=== PATIENT | male | born 2000 | race Hispanic/Latino ===

== ENCOUNTER 2021-10-09 17:14 | Emergency (ER) | payer SELFPAY ==
[~2021-10-09] VITALS: Ht 170.2 cm; Wt 76.2 kg
[2021-10-09] MEDS ORDERED: KETOROLAC TROMETHAMINE 30 MG/ML VIAL IV STA (17:41)
[2021-10-09] MEDS ORDERED: SODIUM CHLORIDE 0.9% 1000ML 1,000 ML IV ONE (17:45)
[2021-10-09] MEDS ORDERED: ONDANSETRON HCL INJ 2MG/ML 2ML 2 MG/ML VIAL IV PRN (17:45)
[2021-10-09] MEDS ORDERED: DICYCLOMINE HCL 20 MG TAB PO ONE (18:00)
[2021-10-09 18:21] LABS: BASOPHILS # (AUTO) 0.1 (0.0-0.1); BASOPHILS % 0.9 % (0.0-1.0); EOSINOPHILS # (AUTO) 0.2 (0.0-0.4); HEMATOCRIT 40.2 % (38.2-49.6); HEMOGLOBIN 14.1 g/dL (14.0-18.0); LYMPHOCYTES # (AUTO) 2.4 (1.0-3.2); LYMPHOCYTES % 28.1 % (18.0-39.1); MEAN CORPUSCULAR HEMOGLOBIN 28.4 pg (28-32); MEAN CORPUSCULAR HGB CONC 35.1 g/dL (31-35); NEUTROPHILS # (AUTO) 4.9 (2.1-6.9); NEUTROPHILS % 56.7 % (38.7-80.0); PLATELET COUNT 356 x10e3/uL (140-360); RED BLOOD COUNT 4.96 x10e6/uL (4.3-5.7); RED CELL DISTRIBUTION WIDTH 12.3 % (11.7-14.4)
[2021-10-09 18:40] LABS: ALBUMIN 4.6 g/dL (3.5-5.0); ALBUMIN/GLOBULIN RATIO 1.4 (0.8-2.0); ANION GAP 14.1 mmol/L (8-16); CALCIUM 9.7 mg/dL (8.4-10.2); CREATININE, SERUM 0.96 mg/dL (0.72-1.25); POTASSIUM 4.1 mmol/L (3.5-5.1)
[2021-10-09] MEDS ORDERED: DICYCLOMINE HCL20 MG PO (19:00)
[2021-10-09] MEDS ORDERED: ONDANSETRON ODT4 MG PO (19:00)
[2021-10-09 19:07] LABS: AMPHETAMINES SCREEN,URINE NEGATIVE (NEGATIVE); BENZODIAZEPINES SCREEN,URINE NEGATIVE (NEGATIVE); PHENCYCLIDINE SCREEN,URINE NEGATIVE (NEGATIVE)
[2021-10-09 19:24] VITALS: BP 128/78
== END 2021-10-09 19:20 | disposition home or self-care (01) ==
LOC: EDBD 17:14 → ER 17:17
DX: R10.13 Epigastric pain (principal); K52.9 Noninfective gastroenteritis and colitis, unspecified; R11.2 Nausea with vomiting, unspecified
CPT/HCPCS: 36415; 74018; 80053; 80307; 83690; 85025; 99284; J1885; J2405; J7030

== ENCOUNTER 2021-10-09 23:51 | Emergency (ER) | payer SELFPAY ==
[~2021-10-09] VITALS: Ht 170.2 cm; Wt 76.2 kg
[~2021-10-09 23:51] MED LIST: DICYCLOMINE HCL20 MG PO; ONDANSETRON ODT4 MG PO
[2021-10-09] MEDS ORDERED: ONDANSETRON HCL INJ 2MG/ML 2ML 2 MG/ML VIAL IV STA (23:53)
[2021-10-10] MEDS ORDERED: DICYCLOMINE HCL 20 MG/2 ML VIAL IM ONE
[2021-10-10] MEDS ORDERED: SODIUM CHLORIDE 0.9% 1000ML 1,000 ML IV SCH
[2021-10-10 00:11] LABS: BASOPHILS # (AUTO) 0.1 (0.0-0.1); BASOPHILS % 0.7 % (0.0-1.0); EOSINOPHILS # (AUTO) 0.3 (0.0-0.4); EOSINOPHILS % 1.9 % (0.0-6.0); HEMATOCRIT 41.4 % (38.2-49.6); HEMOGLOBIN 14.4 g/dL (14.0-18.0); LYMPHOCYTES # (AUTO) 2.7 (1.0-3.2); LYMPHOCYTES % 19.7 % (18.0-39.1); MEAN CORPUSCULAR HEMOGLOBIN 28.6 pg (28-32); MEAN CORPUSCULAR HGB CONC 34.8 g/dL (31-35); MEAN CORPUSCULAR VOLUME 82.1 fL (81-99); MONOCYTES # (AUTO) 1.3 (0.2-0.8); MONOCYTES % 9.4 % (4.4-11.3); NEUTROPHILS # (AUTO) 9.2 (2.1-6.9); PLATELET COUNT 336 x10e3/uL (140-360); RED BLOOD COUNT 5.04 x10e6/uL (4.3-5.7); RED CELL DISTRIBUTION WIDTH 12.5 % (11.7-14.4)
[2021-10-10 00:27] LABS: AMYLASE 43 U/L (25-125); LIPASE 10 U/L (8-78)
[2021-10-10 00:29] LABS: ALBUMIN 4.6 g/dL (3.5-5.0); ALBUMIN/GLOBULIN RATIO 1.5 (0.8-2.0); ANION GAP 12.5 mmol/L (8-16); CALCIUM 9.4 mg/dL (8.4-10.2); CREATININE, SERUM 0.94 mg/dL (0.72-1.25); POTASSIUM 4.5 mmol/L (3.5-5.1)
[2021-10-10] MEDS ORDERED: SODIUM CHLORIDE 0.9% 50ML 50 ML ONE (00:49)
[2021-10-10] MEDS ORDERED: IOPAMIDOL 370 MG/ML 200 ML INFUS..BTL INJ ONE (00:49)
[2021-10-10 02:09] VITALS: BP 110/50
== END 2021-10-10 02:13 | disposition home or self-care (01) ==
LOC: ER 23:55
DX: R10.9 Unspecified abdominal pain (principal); K52.9 Noninfective gastroenteritis and colitis, unspecified; R11.2 Nausea with vomiting, unspecified
CPT/HCPCS: 36415; 74177; 80053; 82150; 83690; 85025; 99283; C9113; J0500; J2405; J7030; Q9967